=== PATIENT | male | born 1965 | race American Indian/Alaskan Native ===

== ENCOUNTER 2017-02-06 03:41 | Emergency (ER) | payer SELFPAY ==
[2017-02-06] MEDS ORDERED: NACL 0.9% 1000 ML 1,000 ML ONE (04:16)
[2017-02-06] MEDS ORDERED: ZOFRAN IV ONE (04:34)
[2017-02-06] MEDS ORDERED: NACL 0.9% 1000 ML 1,000 ML IV ONE ×2 (04:34→06:54)
[2017-02-06 04:45] LABS: Basophils % (Auto) 0.6 % (0.0-1.8); Hematocrit 37.9 % (35.5-45.6); Hemoglobin 13.3 gm/dl (11.8-15.2); Mean Corpuscular HGB Conc 35 % (32-34); Mean Corpuscular Hemoglobin 30 pg (28-32); Mean Corpuscular Volume 87 fl (84-94); Platelet Count 256 K/mm3 (140-440); Red Blood Count 4.37 M/mm3 (3.65-5.03); Red Cell Distribution Width 12.7 % (13.2-15.2); White Blood Count 4.5 K/mm3 (4.5-11.0)
[2017-02-06 05:08] LABS: Alanine Aminotransferase 13 units/L (7-56); Albumin 4.2 g/dL (3.9-5); Albumin/Globulin Ratio 1.8 %; Alkaline Phosphatase 65 units/L (35-129); Anion Gap 21 mmol/L; BUN/Creatinine Ratio 8; Blood Urea Nitrogen 9 mg/dL (9-20); Calcium 8.4 mg/dL (8.4-10.2); Carbon Dioxide 22 mmol/L (22-30); Chloride 105.6 mmol/L (98-107); Glucose 123 mg/dL (75-100); Potassium 3.7 mmol/L (3.6-5.0); Sodium 145 mmol/L (137-145); Total Protein 6.5 g/dL (6.3-8.2)
[2017-02-06 05:16] LABS: INR 0.97 (0.87-1.13); Partial Thromboplastin Time 27.3 Sec. (24.2-36.6)
--- NOTE | 2017-02-06 05:38 | Cat Scan Report ---
FINAL REPORT PROCEDURE: CT HEAD/BRAIN WO CON TECHNIQUE: Computerized tomography of the head was performed without contrast material. HISTORY: s/p fall COMPARISON: No prior studies are available for comparison. FINDINGS: Skull and scalp: Normal. Paranasal sinuses: Normal. Ventricles and subarachnoid spaces: Normal. Cerebrum: No evidence of hemorrhage, acute infarction or mass . Cerebellum and brainstem: No evidence of hemorrhage, acute infarction or mass. Vasculature: Normal. Comments: None. IMPRESSION: Normal Examination
--- NOTE | 2017-02-06 05:39 | Cat Scan Report ---
FINAL REPORT PROCEDURE: CT CERVICAL SPINE WO CON TECHNIQUE: Computerized tomography of the cervical spine was performed from the skull base to T1 without contrast material. HISTORY: Fall COMPARISON: No prior studies are available for comparison. FINDINGS: C1-2: No significant abnormality. C2-3: No significant abnormality. C3-4: No significant abnormality. C4-5: No significant abnormality. C5-6: No significant abnormality. C6-7: No significant abnormality. C7-T1: No significant abnormality. Other: There is no soft tissue swelling or mass.. IMPRESSION: No significant abnormality.
--- NOTE | 2017-02-06 06:03 | Emergency Department Report ---
ED Fall HPI - General Chief Complaint: Fall Stated Complaint: CAN'T FEEL HANDS Time Seen by Provider: 02/06/17 04:33 Source: patient, EMS Mode of arrival: Stretcher - History of Present Illness Initial Comments: Patient was brought in by EMS after he fell down 6 steps at home. He complained of neck pain and bilateral tingling sensation. Patient is intoxicated with alcohol. MD Complaint: fall -: Sudden Fall From: down stairs (#) (6) When Fall Occurred: just prior to arrival Fall Witnessed: no Place Fall Occurred: home Loss of Consciousness: unsure Prolonged Down Time?: no Symptoms Prior to Fall: none Location: head, neck Severity: moderate Severity scale (0 -10): 5 Context: tripped/slipped, alcohol use Associated Symptoms: neck pain - Related Data Allergies Allergy/AdvReac Type Severity Reaction Status Date / Time No Known Allergies Allergy Unverified 02/06/17 04:02 ED Review of Systems ROS: Stated complaint: CAN'T FEEL HANDS Other details as noted in HPI Comment: All other systems reviewed and negative Constitutional: denies: chills, fever Eyes: denies: eye pain, eye discharge, vision change ENT: denies: ear pain, throat pain Respiratory: denies: cough, shortness of breath, wheezing Cardiovascular: denies: chest pain, palpitations Endocrine: no symptoms reported Gastrointestinal: denies: abdominal pain, nausea, diarrhea Genitourinary: denies: urgency, dysuria Musculoskeletal: denies: back pain, arthralgia Skin: denies: rash, lesions Neurological: headache, paresthesias. denies: weakness Psychiatric: denies: anxiety, depression Hematological/Lymphatic: denies: easy bleeding, easy bruising ED Past Medical Hx - Past Medical History Previous Medical History?: No - Surgical History Past Surgical History?: No - Social History Smoking Status: Former Smoker Substance Use Type: Alcohol ED Physical Exam - General Limitations: Physical Limitation General appearance: alert, in no apparent distress - Head Head exam: Present: atraumatic, normocephalic - Eye Eye exam: Present: normal appearance, PERRL, EOMI - ENT ENT exam: Present: mucous membranes moist - Neck Neck exam: Present: normal inspection - Respiratory Respiratory exam: Present: normal lung sounds bilaterally. Absent: respiratory distress, wheezes, rales - Cardiovascular Cardiovascular Exam: Present: regular rate, normal rhythm. Absent: systolic murmur, diastolic murmur, rubs, gallop - GI/Abdominal GI/Abdominal exam: Present: soft, normal bowel sounds. Absent: tenderness - Rectal Rectal exam: Present: decreased rectal tone - Extremities Exam Extremities exam: Present: normal inspection - Back Exam Back exam: Present: normal inspection - Neurological Exam Neurological exam: Present: alert, oriented X3 - Psychiatric Psychiatric exam: Present: normal affect, normal mood - Skin Skin exam: Present: warm, dry, intact, normal color. Absent: rash ED Course Vital Signs 02/06/17 02/06/17 04:02 04:59 Temperature 97.5 F L Pulse Rate 70 Respiratory 20 18 Rate Blood Pressure 86/48 O2 Sat by Pulse 96 98 Oximetry - Consultations Consultation #1: 02/06/17 07:49 Patient was transferred to [facility] for further evaluation by the trauma surgeon. Patient was accepted for [place] transfer by Dr. Aramis Epstein. 02/06/17 07:55 ED Medical Decision Making - Lab Data Result diagrams: 02/06/17 04:27 02/06/17 04:27 - EKG Data -: EKG Interpreted by Ga EKG shows normal: sinus rhythm Rate: normal (69) - EKG Data When compared to previous EKG there are: previous EKG unavailable Interpretation: other (Early repolarization. No STEMI.) - Differential Diagnosis cervical spine injury Critical care attestation.: If time is entered above; I have spent that time in minutes in the direct care of this critically ill patient, excluding procedure time. ED Disposition Clinical Impression: Neck pain, acute, Paresthesia of arm Disposition: [id number] [facility] IP Is pt being admited?: No Does the pt Need Aspirin: No Condition: Stable Referrals: PRIMARY CARE, [Primary Care Provider] - 3-5 Days
[2017-02-06] MEDS ORDERED: SUBLIMAZE IV ONE (08:15)
--- NOTE | 2017-02-06 08:24 | XRay Report ---
AP CHEST : 02/06/17 03:41:00 CLINICAL: Fall with loss of feeling in the hands. COMPARISON:None FINDINGS: Normal heart and pulmonary vessels. The lungs are normally expanded and clear. The bones and soft tissues are normal. No fracture. IMPRESSION: Normal chest.
[2017-02-06 09:54] VITALS: BP 89/51
== END 2017-02-06 09:35 | disposition short-term general hospital (02) ==
LOC: ED 03:41
DX: M54.2 Cervicalgia (principal); R20.2 Paresthesia of skin; Z87.891 Personal history of nicotine dependence; W10.9XXA Fall (on) (from) unspecified stairs and steps, initial encounter; Y93.89 Activity, other specified; Y92.89 Other specified places as the place of occurrence of the external cause; Y99.8 Other external cause status
CPT/HCPCS: 36415; 51702; 70450; 71010; 72125; 80053; 85025; 85610; 85730; 93005; 93010; 96361; 96374; 96375; 99285; G0480; J2405; J3010; J7030; 80320